=== PATIENT | male | born 1995 | race Two or more races ===

== ENCOUNTER 2021-07-11 18:39 | Emergency (ER) | payer MEDICAID ==
[~2021-07-11] VITALS: Ht 180.3 cm; Wt 77.3 kg
[2021-07-11] MEDS ORDERED: LIDOCAINE/PF 1% 2 ML VIAL IM ONE (20:15)
[2021-07-11] MEDS ORDERED: CefTRIAXone SODIUM 1 GM/VIAL IM ONE (20:15)
[2021-07-11] MEDS ORDERED: MetroNIDAZOLE 500 MG TABLET PO ONE (20:15)
[2021-07-11] MEDS ORDERED: AZITHROMYCIN 500 MG TABLET PO ONE (20:15)
[2021-07-11 21:09] VITALS: BP 124/68
== END 2021-07-11 21:10 | disposition home or self-care (01) ==
LOC: EMS 18:43
DX: N34.2 Other urethritis (principal)
CPT/HCPCS: 96372; 99283; A9575; J0696; J3490; Q9967